=== PATIENT | female | born 1980 | race Caucasian/White ===

== ENCOUNTER 2019-12-09 18:52 | Emergency (ER) | payer OTHER ==
[~2019-12-09] VITALS: Ht 170.2 cm; Wt 77.1 kg
[~2019-12-09 18:52] MED LIST: BC IMPLANT; Bactrim Ds Tab1 EACH PO; CEPH500 PO; CIPR250 PO; CRUTCH4 XX; NAPR500 PO; Norco 5-325 Ta1 EACH PO; TRAM50 PO
== END 2019-12-09 22:00 | disposition home or self-care (01) ==
LOC: ER 18:52
DX: S61.411A Laceration without foreign body of right hand, initial encounter (principal); F17.200 Nicotine dependence, unspecified, uncomplicated; Z88.0 Allergy status to penicillin; Z23 Encounter for immunization; W25.XXXA Contact with sharp glass, initial encounter
CPT/HCPCS: 12002; 73130; 90471; 90714; 99283-25

== ENCOUNTER → 2020-02-26 | Outpatient (CLI) | payer OTHER ==
[2020-02-28 15:50] LABS: CORONAVIRUS (COVID19) CSH-NRL Negative (Negative)
== END ==
LOC: LAB SHORT 18:01
PROVIDERS: Chiropractor
DX: Z20.828 Contact with and (suspected) exposure to other viral communicable diseases (principal)
CPT/HCPCS: U0003

== ENCOUNTER 2020-05-01 10:01 | Day surgery (SDC) | payer OTHER ==
[2020-05-04 16:35] LABS: Performing Lab SYMBIODX; Test Name HER2 FISH
[2020-06-28] MEDS ORDERED: Chantix1 MG PO (15:55)
[2020-06-28] MEDS ORDERED: ACET500 PO (15:56)
[2020-06-28] MEDS ORDERED: CEPH500 PO (15:56)
== END 2020-05-01 23:45 | disposition home or self-care (01) ==
LOC: MOI US 10:01 → MOI MAM 10:15 → MOI US 23:45
PROVIDERS: Pathology Clinical Pathology/Laboratory Medicine
DX: C50.211 Malignant neoplasm of upper-inner quadrant of right female breast (principal); Z17.0 Estrogen receptor positive status [ER+]
CPT/HCPCS: 19083; 77065; 88305; 88342; 88360; 88374; A4648

== ENCOUNTER 2020-06-30 11:09 | Inpatient (IN) | payer OTHER ==
[~2020-06-30] VITALS: Ht 170.2 cm; Wt 69.8 kg
[~2020-06-30 11:09] MED LIST changes: +ACET500 PO; +Chantix1 MG PO
[2020-06-30 12:09] LABS: BASOPHILS ABSOLUTE AUTO 0.03 K/mm3 (0.00-0.23); BASOPHILS PERCENT AUTO 0 % (0-2); EOSINOPHILS ABSOLUTE AUTO 0.16 K/mm3 (0.00-0.68); EOSINOPHILS PERCENT AUTO 1 % (0-6); Hematocrit 37.3 % (33.0-51.0); Hemoglobin 12.5 g/dL (11.5-16.0); IMMATURE GRAN ABSOLUTE AUTO 0.04 K/mm3 (0.00-0.10); IMMATURE GRAN PERCENT AUTO 0 % (0-1); LYMPHOCYTES ABSOLUTE AUTO 1.51 K/mm3 (0.84-5.20); LYMPHOCYTES PERCENT AUTO 12 % (21-46); MONOCYTES ABSOLUTE AUTO 0.91 K/mm3 (0.16-1.47); MONOCYTES PERCENT AUTO 7 % (4-13); Mean Corpuscular HGB 32.5 pg (26.0-34.0); Mean Corpuscular HGB Conc 33.5 g/dL (31.5-36.5); Mean Corpuscular Volume 97 fL (80-100); Mean Platelet Volume 9.8 fL (9.1-12.4); NEUTROPHILS ABSOLUTE AUTO 10.12 K/mm3 (1.96-9.15); NEUTROPHILS PERCENT AUTO 79 % (41-73); Platelet Count 311 K/mm3 (150-400); RDW Coefficient Variation 12.7 % (11.7-14.2); Red Blood Cell Count 3.85 M/mm3 (3.80-5.20); White Blood Cell Count 12.77 K/mm3 (4.00-11.30)
[2020-06-30 12:32] LABS: Alanine Aminotransfer (ALT/SGP 17 U/L (12-78); Albumin, Blood 3.2 g/dL (3.4-5.0); Albumin/Globulin Ratio 0.7 (0.8-1.8); Alk Phos 70 U/L (50-136); Anion Gap 6 mmol/L (6-16); Aspartate Aminotrans (AST/SGOT 10 U/L (12-37); Bilirubin, Total 0.3 mg/dL (0.1-1.0); Blood Urea Nitrogen 11 mg/dL (8-24); CO2, Blood 28 mmol/L (21-32); Calcium, Blood 9.1 mg/dL (8.5-10.1); Chloride, Blood 101 mmol/L (98-108); Creatinine, Blood 0.69 mg/dL (0.40-1.00); Globulin, Blood 4.3 g/dL (2.2-4.0); Glomerular Filtration Rate >60 (60-); Glucose, Blood 82 mg/dL (70-99); Potassium, Blood 4.4 mmol/L (3.5-5.5); Sodium, Blood 135 mmol/L (136-145); Total Protein, Blood 7.5 g/dL (6.4-8.2)
[2020-07-01 05:28] LABS: BASOPHILS ABSOLUTE AUTO 0.04 K/mm3 (0.00-0.23); BASOPHILS PERCENT AUTO 1 % (0-2); EOSINOPHILS ABSOLUTE AUTO 0.33 K/mm3 (0.00-0.68); EOSINOPHILS PERCENT AUTO 4 % (0-6); Hematocrit 33.2 % (33.0-51.0); Hemoglobin 10.9 g/dL (11.5-16.0); IMMATURE GRAN ABSOLUTE AUTO 0.03 K/mm3 (0.00-0.10); IMMATURE GRAN PERCENT AUTO 0 % (0-1); LYMPHOCYTES ABSOLUTE AUTO 1.99 K/mm3 (0.84-5.20); LYMPHOCYTES PERCENT AUTO 24 % (21-46); MONOCYTES ABSOLUTE AUTO 0.65 K/mm3 (0.16-1.47); MONOCYTES PERCENT AUTO 8 % (4-13); Mean Corpuscular HGB 31.9 pg (26.0-34.0); Mean Corpuscular HGB Conc 32.8 g/dL (31.5-36.5); Mean Corpuscular Volume 97 fL (80-100); NEUTROPHILS ABSOLUTE AUTO 5.44 K/mm3 (1.96-9.15); NEUTROPHILS PERCENT AUTO 64 % (41-73); Platelet Count 282 K/mm3 (150-400); RDW Coefficient Variation 12.7 % (11.7-14.2); RDW Standard Deviation 45.1 fL (35.1-46.3); Red Blood Cell Count 3.42 M/mm3 (3.80-5.20); White Blood Cell Count 8.48 K/mm3 (4.00-11.30)
[2020-07-01 06:04] LABS: Anion Gap 7 mmol/L (6-16); Blood Urea Nitrogen 9 mg/dL (8-24); Bun/Creatinine Ratio 16.5 (12.0-20.0); CO2, Blood 26 mmol/L (21-32); Calcium, Blood 8.7 mg/dL (8.5-10.1); Chloride, Blood 105 mmol/L (98-108); Creatinine, Blood 0.55 mg/dL (0.40-1.00); Glomerular Filtration Rate >60 (60-); Glucose, Blood 89 mg/dL (70-99); Sodium, Blood 138 mmol/L (136-145)
--- NOTE | 2020-07-01 06:47 | NUR ---
SHIFT SUMMARY PT IS A 39 Y/O FEMALE, ADMITTED FOR SEPSIS R/T INFECTION POST-BILAT MASTECTOMY. R BREAST HAS AREA OF REDNESS, WARMTH AND PAIN. PT WAS MEDICATED TWICE FOR PAIN WITH PRN OXYCODONE. NO C/O NAUSEA OR SOB. VITAL SIGNS STABLE. PT RECEIVING NS @ 75 ML/HR. NO ACUTE CHANGES IN PT CONDITION NOTED DURING THE NIGHT. WILL CONTINUE TO MONITOR AND TREAT PER UNTIL HAND OFF TO DAY SHIFT RN.
[2020-07-01 15:47] LABS: Vancomycin, Trough 10.5 ug/mL (5.0-10.0)
--- NOTE | 2020-07-01 16:49 | NUR ---
SHIFT SUMMARY PT AOX4; CALLS APPROPRIATELY AND INDEPENDENT IN THE ROOM. PT RECEIVING VANCOMYCIN. PT HAD A PREVIOUS BILAT MASTECTOMY 3 WEEKS AGO, AND R BREAST GOT INFECTED. PT R BREAST SWOLLEN/RED. PT MEDICATED FOR PAIN TODAY. PT STATED TORADOL IS WORKING FOR HER. PT ALSO C/O OF INSOMNIA; RECEIVED AN ORDER FOR MARA MEDRANO. PT BED IS IN THE LOWEST POSITION AND CALL LIGHT WITHIN REACH
--- NOTE | 2020-07-01 18:57 | NUR ---
Spiritual care note: Advanced directive completed with Xiao. If there is no hope of meaningful recovery, she wishes to be DNR. She does want "everything done" until there "is no hope." She feels well loved and supported by friends and family. She does not trust her mom to make "Right decisions" and has assigned her cousin and sister as MPOA. Advanced Directive notarized and copy hand-carried to Medical Records. Several copies given to pt. Xiao has a sense of humor and is hopeful for complete remission of cancer. I supported and affirmed beliefs and offered prayer. [facility] services will remain available.
--- NOTE | 2020-07-02 07:10 | NUR ---
SHIFT SUMMARY PT IS A 39 Y/O FEMALE, ADMITTED FOR SEPSIS R/T R BREAST INFECTION POST BILATERAL MASTECTOMY. SHE IS A&O X 4, INDEPENDENT IN THE ROOM. PT MEDICATED ONCE FOR BREAST PAIN WITH PRN IV TORADOL, WHICH PT REPORTS CONTROLS THE PAIN WELL. NO C/O NAUSEA OR SOB. VITAL SIGNS STABLE. PT RECEIVING NS @ 75 ML/HR. NO ACUTE CHANGES IN PT CONDITION NOTED. REPORT GICEN TO ONCOMING RN.
[2020-07-02] MEDS ORDERED: VISBIOME 112.51 EACH PO (12:02)
[2020-07-02] MEDS ORDERED: FAMO20 PO (12:03)
[2020-07-02] MEDS ORDERED: LEVO750 PO (12:03)
[2020-07-02] MEDS ORDERED: IBUP400 PO (12:03)
--- NOTE | 2020-07-02 14:11 | NUR ---
DISCHARGE DISCHARGE INSTRUCTIONS, MEDICATION LIST AN FOLLOW UP APPOINTMENTS REVIEWED WITH PT. QUESTIONS/CONCERNS ANSWERED. PT VERBALLY INDICATED UNDERSTANDING OF ALL INSTRUCTIONS RECEIVED. ESCORTED OUT VIA W/C BY CARMEN
== END 2020-07-02 13:49 | disposition home or self-care (01) | DRG 862 ==
LOC: ER 11:09 → ERHOLD 16:15 → MEDS 16:15
PROVIDERS: Emergency Medicine; Nurse Practitioner Acute Care; Pharmacist; ADMIT Internal Medicine
PROC: 0J963ZZ Drainage of Chest Subcutaneous Tissue and Fascia, Percutaneous Approach (ICD-10-PCS; principal; 2020-06-30)
DX: T81.41XA Infection following a procedure, superficial incisional surgical site, initial encounter (principal); A41.9 Sepsis, unspecified organism; R65.20 Severe sepsis without septic shock; M96.843 Postprocedural seroma of a musculoskeletal structure following other procedure; C50.912 Malignant neoplasm of unspecified site of left female breast; C50.911 Malignant neoplasm of unspecified site of right female breast; T81.44XA Sepsis following a procedure, initial encounter; N61.1 Abscess of the breast and nipple; Y83.8 Other surgical procedures as the cause of abnormal reaction of the patient, or of later complication, without mention of misadventure at the time of the procedure; Z88.0 Allergy status to penicillin; Z79.899 Other long term (current) drug therapy
CPT/HCPCS: 10061; 10160; 36415; 76604; 80048; 80053; 80202; 83605; 85025; 87040; 87070; 87075; 87077; 87147; 87186; 87205; 89051; 96365-59; 96375-59; 99284-25; A9270; J0690; J1170; J1644; J1650; J1885; J2270; J2405; J3370; J7030; J7050

== ENCOUNTER 2020-08-12 15:35 | Day surgery (SDC) | payer OTHER ==
[~2020-08-12 15:35] MED LIST changes: +FAMO20 PO; +IBUP400 PO; +LEVO750 PO; +VISBIOME 112.51 EACH PO
== END 2020-08-12 22:50 | disposition home or self-care (01) ==
LOC: RAD 15:35
DX: C50.211 Malignant neoplasm of upper-inner quadrant of right female breast (principal)
CPT/HCPCS: 36598

== ENCOUNTER 2020-11-23 12:51 | Day surgery (SDC) | payer OTHER | END 2020-11-23 23:11 | disposition home or self-care (01) | LOC: RAD 12:51 | DX: C50.919 Malignant neoplasm of unspecified site of unspecified female breast (principal) | CPT/HCPCS: 36598; Q9967 ==

== ENCOUNTER 2021-07-27 12:56 | Day surgery (SDC) | payer OTHER ==
[~2021-07-27] VITALS: Ht 170.2 cm; Wt 68.5 kg
[2021-07-27] MEDS ORDERED: BUSP10 (13:45)
[2021-07-27] MEDS ORDERED: BUPR150ER (13:46)
[2021-07-27] MEDS ORDERED: TRAZ50 (13:46)
--- NOTE | 2021-07-27 14:34 | NUR ---
07/27/21 1434 David Milan 0.15MG EPI ADDED TO 30 ML'S 0.5% BUPIVACAINE TO ACHIEVE SOLUTION OF 1:200,000. DOSE VERIFIED BY [email or web address] AND [email or web address]
== END 2021-07-27 17:35 | disposition home or self-care (01) ==
LOC: ORSCSDS 12:56
PROVIDERS: Obstetrics & Gynecology
PROC: 0UT74ZZ Resection of Bilateral Fallopian Tubes, Percutaneous Endoscopic Approach (ICD-10-PCS; principal; 2021-07-27 14:00)
PROC: 0UT24ZZ Resection of Bilateral Ovaries, Percutaneous Endoscopic Approach (ICD-10-PCS; principal; 2021-07-27 14:00)
DX: Z40.02 Encounter for prophylactic removal of ovary(s) (principal); C50.919 Malignant neoplasm of unspecified site of unspecified female breast; Z17.0 Estrogen receptor positive status [ER+]; N83.292 Other ovarian cyst, left side; N83.291 Other ovarian cyst, right side; K66.0 Peritoneal adhesions (postprocedural) (postinfection); F17.210 Nicotine dependence, cigarettes, uncomplicated
CPT/HCPCS: 88305; A9270; J0171; J1100; J1885; J2250; J2405; J2704; J3010; J7120

== ENCOUNTER 2021-09-19 21:22 | Emergency (ER) | payer OTHER ==
[~2021-09-19] VITALS: Ht 170.2 cm; Wt 72.6 kg
[~2021-09-19 21:22] MED LIST changes: +BUPR150ER; +BUSP10; +TRAZ50
[2021-09-19 21:57] LABS: BASOPHILS ABSOLUTE AUTO 0.06 K/mm3 (0.00-0.23); BASOPHILS PERCENT AUTO 1 % (0-2); EOSINOPHILS ABSOLUTE AUTO 0.18 K/mm3 (0.00-0.68); EOSINOPHILS PERCENT AUTO 3 % (0-6); Hematocrit 35.1 % (33.0-51.0); Hemoglobin 11.7 g/dL (11.5-16.0); Mean Corpuscular HGB 32.7 pg (26.0-34.0); Mean Corpuscular HGB Conc 33.3 g/dL (31.5-36.5); Mean Corpuscular Volume 98 fL (80-100); Mean Platelet Volume 9.6 fL (9.1-12.4); Platelet Count 235 K/mm3 (150-400); RDW Coefficient Variation 12.3 % (11.7-14.2); RDW Standard Deviation 44.8 fL (35.1-46.3); Red Blood Cell Count 3.58 M/mm3 (3.80-5.20); White Blood Cell Count 6.92 K/mm3 (4.00-11.30)
[2021-09-19 22:01] LABS: IMMATURE GRAN ABSOLUTE AUTO 0.01 K/mm3 (0.00-0.10); IMMATURE GRAN PERCENT AUTO 0 % (0-1); LYMPHOCYTES PERCENT AUTO 23 % (21-46); MONOCYTES ABSOLUTE AUTO 0.65 K/mm3 (0.16-1.47); MONOCYTES PERCENT AUTO 9 % (4-13); NEUTROPHILS ABSOLUTE AUTO 4.42 K/mm3 (1.96-9.15); NEUTROPHILS PERCENT AUTO 64 % (41-73)
[2021-09-19 22:16] LABS: Albumin, Blood 3.4 g/dL (3.4-5.0); Albumin/Globulin Ratio 1.1 (0.8-1.8); Bilirubin, Total 0.2 mg/dL (0.1-1.0); Calcium, Blood 8.7 mg/dL (8.5-10.1); Creatinine, Blood 0.59 mg/dL (0.40-1.00); Globulin, Blood 3.2 g/dL (2.2-4.0); Total Protein, Blood 6.6 g/dL (6.4-8.2)
[2021-09-20] MEDS ORDERED: CYCL10 PO (00:05)
== END 2021-09-20 00:31 | disposition home or self-care (01) ==
LOC: ER 21:22
PROVIDERS: Student in an Organized Health Care Education/Training Program
DX: R07.89 Other chest pain (principal); Z87.891 Personal history of nicotine dependence
CPT/HCPCS: 36415; 71046; 80053; 85025; A9270

== ENCOUNTER 2024-06-13 13:50 | Observation (INO) | payer OTHER ==
[~2024-06-13] VITALS: Ht 170.2 cm; Wt 73.8 kg
[~2024-06-13 13:50] MED LIST changes: +CYCL10 PO
[2024-06-13 19:43] LABS: BASOPHILS ABSOLUTE AUTO 0.06 K/mm3 (0.00-0.23); BASOPHILS PERCENT AUTO 1 % (0-2); EOSINOPHILS ABSOLUTE AUTO 0.21 K/mm3 (0.00-0.68); EOSINOPHILS PERCENT AUTO 3 % (0-6); Hematocrit 40.3 % (33.0-51.0); Hemoglobin 13.4 g/dL (11.5-16.0); IMMATURE GRAN ABSOLUTE AUTO 0.02 K/mm3 (0.00-0.10); IMMATURE GRAN PERCENT AUTO 0 % (0-1); LYMPHOCYTES ABSOLUTE AUTO 1.92 K/mm3 (0.84-5.20); LYMPHOCYTES PERCENT AUTO 31 % (21-46); MONOCYTES ABSOLUTE AUTO 0.48 K/mm3 (0.16-1.47); MONOCYTES PERCENT AUTO 8 % (4-13); Mean Corpuscular HGB 31.5 pg (26.0-34.0); Mean Corpuscular HGB Conc 33.3 g/dL (31.5-36.5); Mean Corpuscular Volume 95 fL (80-100); Mean Platelet Volume 9.6 fL (9.1-12.4); NEUTROPHILS ABSOLUTE AUTO 3.59 K/mm3 (1.96-9.15); NEUTROPHILS PERCENT AUTO 57 % (41-73); Platelet Count 232 K/mm3 (150-400); RDW Coefficient Variation 12.8 % (11.7-14.2); RDW Standard Deviation 44.9 fL (35.1-46.3); Red Blood Cell Count 4.26 M/mm3 (3.80-5.20); White Blood Cell Count 6.28 K/mm3 (4.00-11.30)
[2024-06-13 19:58] LABS: International Normalized Ratio 0.88; Prothrombin Time Results 9.5 Sec (9.7-11.5)
[2024-06-13 20:17] LABS: Albumin, Blood 3.8 g/dL (3.4-5.0); Bilirubin, Total 0.4 mg/dL (0.1-1.0); Calcium, Blood 9.1 mg/dL (8.5-10.1); Creatinine, Blood 0.75 mg/dL (0.40-1.00); Globulin, Blood 3.7 g/dL (2.2-4.0); Potassium, Blood 3.7 mmol/L (3.5-5.5); Total Protein, Blood 7.5 g/dL (6.4-8.2)
[2024-06-13] MEDS ORDERED: Heparin Sodium,Porcine/0.5 NS 500 ML IV SCH (20:45)
[2024-06-13] MEDS ORDERED: Acetaminophen 325 MG TABLET PO PRN (20:50)
[2024-06-13] MEDS ORDERED: Ondansetron HCl 2 MG / ML 2ML Vial IV PRN (20:50)
[2024-06-13] MEDS ORDERED: TraMADol HCl 50 MG Tab PO PRN (20:50)
[2024-06-13] MEDS ORDERED: FLU VACC TS2024-25(6MOS UP)/PF 45 MCG/0.5 ML SYRINGE IM SCH (20:50)
[2024-06-13 20:57] LABS: Anti-Xa UFH, PHA Monitoring <0.10 IU/mL
[2024-06-13] MEDS ORDERED: Docusate Sodium 100 MG Cap PO SCH (21:00)
[2024-06-13] MEDS ORDERED: Heparin Sodium 5000 Units/ML 1ML MDV IV ONE (21:50)
[2024-06-13 22:22] VITALS: BP 141/87
[2024-06-13 23:41] LABS: U Amphetamine Screen DETECTED; U Barbituate Screen Not Detected; U Benzodiazapine Screen Not Detected; U Buprenorphine Screen Not Detected; U Cannabinoids Screen DETECTED; U Cocaine Screen Not Detected; U Methadone Screen Not Detected; U Methamphetamine Screen DETECTED; U Opiates Screen Not Detected; U Oxycodone Screen Not Detected; U Phencyclidine Screen Not Detected
[2024-06-14] MEDS ORDERED: Melatonin 3 MG Tab PO PRN (01:55)
[2024-06-14] MEDS ORDERED: Nicotine 21 MG PATCH TOP SCH ×2 (02:05→09:00)
[2024-06-14 03:12] LABS: BASOPHILS ABSOLUTE AUTO 0.07 K/mm3 (0.00-0.23); BASOPHILS PERCENT AUTO 1 % (0-2); EOSINOPHILS PERCENT AUTO 4 % (0-6); Hematocrit 38.4 % (33.0-51.0); Hemoglobin 12.8 g/dL (11.5-16.0); IMMATURE GRAN ABSOLUTE AUTO 0.02 K/mm3 (0.00-0.10); IMMATURE GRAN PERCENT AUTO 0 % (0-1); LYMPHOCYTES ABSOLUTE AUTO 2.63 K/mm3 (0.84-5.20); LYMPHOCYTES PERCENT AUTO 38 % (21-46); MONOCYTES ABSOLUTE AUTO 0.47 K/mm3 (0.16-1.47); MONOCYTES PERCENT AUTO 7 % (4-13); Mean Corpuscular HGB 31.6 pg (26.0-34.0); Mean Corpuscular HGB Conc 33.3 g/dL (31.5-36.5); Mean Corpuscular Volume 95 fL (80-100); NEUTROPHILS ABSOLUTE AUTO 3.41 K/mm3 (1.96-9.15); NEUTROPHILS PERCENT AUTO 50 % (41-73); Platelet Count 216 K/mm3 (150-400); RDW Standard Deviation 44.7 fL (35.1-46.3); Red Blood Cell Count 4.05 M/mm3 (3.80-5.20)
[2024-06-14 03:53] VITALS: BP 133/79
[2024-06-14] MEDS ORDERED: Dose Adjust by Pharmacy XX STA (04:03)
[2024-06-14 04:40] LABS: Albumin, Blood 3.5 g/dL (3.4-5.0); Albumin/Globulin Ratio 1.1 (0.8-1.8); Bilirubin, Total 0.4 mg/dL (0.1-1.0); Bun/Creatinine Ratio 22.8 (12.0-20.0); Calcium, Blood 8.4 mg/dL (8.5-10.1); Creatinine, Blood 0.75 mg/dL (0.40-1.00); Globulin, Blood 3.1 g/dL (2.2-4.0); Potassium, Blood 3.5 mmol/L (3.5-5.5); Total Protein, Blood 6.6 g/dL (6.4-8.2)
--- NOTE | 2024-06-14 05:21 | NUR ---
NEW ADMISSION, IV PATENT AND RUNNING HEPARIN ORDERED. PT HAS BEEN NPO SINCE [id number]. PT DENIES PAIN, OR NEEDS NO S/S OF DISTRESS NOTED THIS SHIFT. PTS SON AT [facility].
[2024-06-14 07:32] VITALS: BP 137/90
[2024-06-14 14:25] VITALS: BP 127/75
[2024-06-14] MEDS ORDERED: NS 1,000 ML IV ONE ×3 (15:55→16:50)
[2024-06-14] MEDS ORDERED: Heparin Sodium 1000 Units/ML 10ML MDV ONE ×2 (15:55→16:50)
[2024-06-14] MEDS ORDERED: Midazolam HCl 1MG / ML 2ML Vial ONE ×2 (16:24→17:08)
[2024-06-14] MEDS ORDERED: FentaNYL Citrate 50 MCG/ML 2 ML Injection ONE (16:24)
--- NOTE | 2024-06-14 16:30 | NUR ---
PATIENT TAKEN TO BOILERMAKER HELPER VIA WHEELCHAIR. PATIENT AGITATED PRIOR TO PROCEDURE BECAUSE FAMILY CALLED TO REPORT CATS PEEING IN HER ROOM. PATIENT ATTEMPTED TO GO AMA BUT WAS EDUCATED RELATED TO RISKS. PATIENT COOPERATIVE AND AGREED TO PROCEDURE.
[2024-06-14] MEDS ORDERED: LORazepam 2 MG/ML 1ML Injection IV PRN (16:45)
[2024-06-14 17:47] VITALS: BP 128/95
--- NOTE | 2024-06-14 19:00 | NUR ---
SHIFT SUMMARY PATIENT ALERT AND INTERACTIVE. RESTLESS IN THE ROOM. PATIENT INDEPENDENT IN THE ROOM. VISITORS NOTED TO HAVE CIGARETTES IN THE ROOM. EDUCATED RELATED TO FIRE SAFETY AND HOSPITAL POLICY. LATER, PRIOR TO PROCEDURE, PATIENT FOUND TO HAVE VAPING DEVICE. VAPING DEVICE REMOVED AND SECURED. MOTHER AND PATIENT RE EDUCATED RELATED TO FIRE SAFETY AND HOSPITAL POLICY. FAMILY BROUGHT IN FOOD AND BELONGINGS. FAMILY INFORMED OF FIRE SAFETY AND HOSPITAL POLICY. FAMILY REMOVED A BOTTLE FULL OF A LIQUID AND A COAT CONTAINING COVERED ITEMS AND LEFT WITH THOSE ITEMS. ALL OTHER BELONGINS CHECKED AND GIVEN TO PATIENT. PATIENT UPSET THAT WE ARE NOT ABLE TO REHEAT OUTSIDE FOOD. FOOD ITEMS PLACED ON ICE IN PATIENTS ROOM. PRESSURE DRESSING OVER R AC VENOUS ACCESS REMOVED DURING BEDSIDE REPORT NO BLEEDING ON OCCLUSIVE DRESSING.
[2024-06-14 19:54] VITALS: BP 149/100
[2024-06-14] MEDS ORDERED: Melatonin 3 MG Tab PO SCH (21:00)
[2024-06-15 01:12] VITALS: BP 143/101
[2024-06-15 01:25] LABS: BASOPHILS ABSOLUTE AUTO 0.04 K/mm3 (0.00-0.23); BASOPHILS PERCENT AUTO 1 % (0-2); EOSINOPHILS ABSOLUTE AUTO 0.24 K/mm3 (0.00-0.68); EOSINOPHILS PERCENT AUTO 4 % (0-6); Hematocrit 38.8 % (33.0-51.0); IMMATURE GRAN ABSOLUTE AUTO 0.01 K/mm3 (0.00-0.10); IMMATURE GRAN PERCENT AUTO 0 % (0-1); LYMPHOCYTES ABSOLUTE AUTO 1.74 K/mm3 (0.84-5.20); LYMPHOCYTES PERCENT AUTO 29 % (21-46); MONOCYTES ABSOLUTE AUTO 0.37 K/mm3 (0.16-1.47); MONOCYTES PERCENT AUTO 6 % (4-13); Mean Corpuscular HGB 31.9 pg (26.0-34.0); Mean Corpuscular HGB Conc 33.5 g/dL (31.5-36.5); Mean Corpuscular Volume 95 fL (80-100); Mean Platelet Volume 9.5 fL (9.1-12.4); NEUTROPHILS ABSOLUTE AUTO 3.52 K/mm3 (1.96-9.15); NEUTROPHILS PERCENT AUTO 59 % (41-73); Platelet Count 230 K/mm3 (150-400); RDW Coefficient Variation 12.9 % (11.7-14.2); RDW Standard Deviation 46.1 fL (35.1-46.3); Red Blood Cell Count 4.07 M/mm3 (3.80-5.20); White Blood Cell Count 5.92 K/mm3 (4.00-11.30)
[2024-06-15 01:42] LABS: Bun/Creatinine Ratio 23.1 (12.0-20.0); Calcium, Blood 8.4 mg/dL (8.5-10.1); Creatinine, Blood 0.65 mg/dL (0.40-1.00); Potassium, Blood 3.7 mmol/L (3.5-5.5)
[2024-06-15] MEDS ORDERED: Clarify Drug Order XX ONE (02:40)
[2024-06-15 03:23] VITALS: BP 151/102
--- NOTE | 2024-06-15 04:55 | NUR ---
PT HAS SLEPT T/O MOST OF THE SHIFT. INDEPENDENT IN RM DENIES PAIN OR NEEDS.
[2024-06-15 07:42] VITALS: BP 132/86
[2024-06-15] MEDS ORDERED: Rivaroxaban 10 MG Tab PO SCH (08:00)
[2024-06-15] MEDS ORDERED: XARELTO20 MG PO ×2 (11:18)
[2024-06-15 11:32] VITALS: BP 151/99
--- NOTE | 2024-06-15 13:30 | NUR ---
SHIFT SUMMARY AND DISCHARGE PATIENT ALERT AND INTERACTIVE. PATIENT EASILY IRRITABLE AND LOUD. PATIENT INDEPENDENT IN ROOM. R AC ACCESS SITE DRY AND INTACT. DRESSING CHANGED. DISCHARGE INSTRUCTIONS REVIEWED WITH PATIENT. PATIENT STATED THAT IF THE PRESCRIPTIONS WERE GOING TO COST HER MONEY, SHE WAS NOT GOING TO PICK THEM UP. RE EDUCATED PATIENT ON THE IMPORTANCE OF TAKING BLOOD THINNERS ORDERED. PATIENT VERBALIZED UNDERSTANDING. EDUCATION RELATED TO SITE CARE PROVIDED TO PATIENT. IV DC'D. TELE MONITOR REMOVED. ALL BELONGINGS RETURNED TO PATIENT. PATIENT AMBULATED OUT WITH FAMILY MEMBER.
--- NOTE | 2024-06-16 14:41 | NUR ---
CALL FROM PATIENT'S HEALTHCARE PROXY, JJ HARRY: SHE TYPICALLY HELPS PATIENT WITH ALL OF HER HEALTHCARE NEEDS, BUT WAS UNABLE TO BE HERE WHEN PATIENT DISCHARGED YESTERDAY (INFO LISTED IN PATIENT'S CHART). LET JJ KNOW THAT PATIENT HAD A DARK BLUE PACKET WHEN SHE WAS DISCHARGED AND ALL INFORMATION SHOULD BE IN THERE. SHE ESSENTIALLY WANTED TO KNOW IF ANY MEDICATIONS WERE SENT TO THE PHARMACY, IF THEY NEEDED TO BE PICKED UP RIGHT AWAY AND WITH WHOM SHE NEEDED TO SCHEDULE FOLLOW-UP APPOINTMENTS FOR PATIENT.
== END 2024-06-15 13:32 | disposition home or self-care (01) ==
LOC: ER 13:50 → MEDS 13:51 → UNDODEPER 06-15 04:52 → MEDS 06-15 13:32
PROVIDERS: Student in an Organized Health Care Education/Training Program; ADMIT Student in an Organized Health Care Education/Training Program
DX: I82.B11 Acute embolism and thrombosis of right subclavian vein (principal); I82.A11 Acute embolism and thrombosis of right axillary vein; I82.621 Acute embolism and thrombosis of deep veins of right upper extremity; I82.611 Acute embolism and thrombosis of superficial veins of right upper extremity; F17.210 Nicotine dependence, cigarettes, uncomplicated; Z88.0 Allergy status to penicillin; Z79.899 Other long term (current) drug therapy
CPT/HCPCS: 36415; 37187; 37248; 75827; 76937; 80048; 80053; 83735; 85025; 85520; 85610; 85730; 93306; 93971; 94762; 96374; 96376; 99152; 99153; 99285-25; A9270; C1725; C1769; C1887; C1894; G0378; J1644; J2250; J3010; J7030; Q9967

== ENCOUNTER 2024-06-23 19:12 | Emergency (ER) | payer OTHER ==
[~2024-06-23] VITALS: Ht 170.2 cm; Wt 74.4 kg
[~2024-06-23 19:12] MED LIST changes: +XARELTO20 MG PO
[2024-06-23 19:51] LABS: BASOPHILS ABSOLUTE AUTO 0.05 K/mm3 (0.00-0.23); BASOPHILS PERCENT AUTO 1 % (0-2); EOSINOPHILS ABSOLUTE AUTO 0.13 K/mm3 (0.00-0.68); EOSINOPHILS PERCENT AUTO 2 % (0-6); Hematocrit 38.4 % (33.0-51.0); Hemoglobin 12.8 g/dL (11.5-16.0); IMMATURE GRAN ABSOLUTE AUTO 0.01 K/mm3 (0.00-0.10); IMMATURE GRAN PERCENT AUTO 0 % (0-1); LYMPHOCYTES ABSOLUTE AUTO 1.53 K/mm3 (0.84-5.20); LYMPHOCYTES PERCENT AUTO 22 % (21-46); MONOCYTES ABSOLUTE AUTO 0.31 K/mm3 (0.16-1.47); MONOCYTES PERCENT AUTO 4 % (4-13); Mean Corpuscular HGB 31.5 pg (26.0-34.0); Mean Corpuscular HGB Conc 33.3 g/dL (31.5-36.5); Mean Corpuscular Volume 95 fL (80-100); Mean Platelet Volume 9.6 fL (9.1-12.4); NEUTROPHILS ABSOLUTE AUTO 4.98 K/mm3 (1.96-9.15); NEUTROPHILS PERCENT AUTO 71 % (41-73); Platelet Count 262 K/mm3 (150-400); RDW Coefficient Variation 12.9 % (11.7-14.2); RDW Standard Deviation 44.9 fL (35.1-46.3); Red Blood Cell Count 4.06 M/mm3 (3.80-5.20); White Blood Cell Count 7.01 K/mm3 (4.00-11.30)
[2024-06-23 20:11] LABS: Albumin/Globulin Ratio 1.1 (0.8-1.8); Bilirubin, Total 0.3 mg/dL (0.1-1.0); Bun/Creatinine Ratio 17.1 (12.0-20.0); Creatinine, Blood 0.76 mg/dL (0.40-1.00); Globulin, Blood 3.5 g/dL (2.2-4.0); Total Protein, Blood 7.5 g/dL (6.4-8.2)
[2024-06-23] MEDS ORDERED: Morphine Sulfate 4 MG/1 ML Injection IV ONE (21:05)
[2024-06-23 21:30] VITALS: BP 129/80
== END 2024-06-23 22:02 | disposition home or self-care (01) ==
LOC: ER 19:12
PROVIDERS: Student in an Organized Health Care Education/Training Program
DX: I82.621 Acute embolism and thrombosis of deep veins of right upper extremity (principal); I82.611 Acute embolism and thrombosis of superficial veins of right upper extremity; R07.9 Chest pain, unspecified; Z86.718 Personal history of other venous thrombosis and embolism; Z87.891 Personal history of nicotine dependence; Z88.0 Allergy status to penicillin; Z79.01 Long term (current) use of anticoagulants
CPT/HCPCS: 71260; 80053; 85025; 93005; 93010; 93971; J2270; Q9967

== ENCOUNTER 2024-07-05 15:40 | Emergency (ER) | payer OTHER ==
[~2024-07-05] VITALS: Ht 170.2 cm; Wt 79.7 kg
[2024-07-05 16:53] LABS: BASOPHILS ABSOLUTE AUTO 0.06 K/mm3 (0.00-0.23); BASOPHILS PERCENT AUTO 1 % (0-2); EOSINOPHILS ABSOLUTE AUTO 0.17 K/mm3 (0.00-0.68); EOSINOPHILS PERCENT AUTO 3 % (0-6); Hematocrit 35.3 % (33.0-51.0); Hemoglobin 11.6 g/dL (11.5-16.0); IMMATURE GRAN ABSOLUTE AUTO 0.02 K/mm3 (0.00-0.10); IMMATURE GRAN PERCENT AUTO 0 % (0-1); LYMPHOCYTES ABSOLUTE AUTO 1.58 K/mm3 (0.84-5.20); LYMPHOCYTES PERCENT AUTO 25 % (21-46); MONOCYTES ABSOLUTE AUTO 0.48 K/mm3 (0.16-1.47); MONOCYTES PERCENT AUTO 8 % (4-13); Mean Corpuscular HGB 32.1 pg (26.0-34.0); Mean Corpuscular HGB Conc 32.9 g/dL (31.5-36.5); Mean Corpuscular Volume 98 fL (80-100); NEUTROPHILS ABSOLUTE AUTO 3.91 K/mm3 (1.96-9.15); NEUTROPHILS PERCENT AUTO 63 % (41-73); Platelet Count 236 K/mm3 (150-400); RDW Coefficient Variation 13.3 % (11.7-14.2); RDW Standard Deviation 48.3 fL (35.1-46.3); Red Blood Cell Count 3.61 M/mm3 (3.80-5.20); White Blood Cell Count 6.22 K/mm3 (4.00-11.30)
[2024-07-05 17:05] LABS: Albumin, Blood 3.7 g/dL (3.4-5.0); Albumin/Globulin Ratio 1.1 (0.8-1.8); Bilirubin, Total 0.2 mg/dL (0.1-1.0); Bun/Creatinine Ratio 26.7 (12.0-20.0); Calcium, Blood 8.9 mg/dL (8.5-10.1); Creatinine, Blood 0.75 mg/dL (0.40-1.00); Globulin, Blood 3.3 g/dL (2.2-4.0); Potassium, Blood 4.4 mmol/L (3.5-5.5)
[2024-07-05 20:27] LABS: Source, Urine Clean Catch
[2024-07-05] MEDS ORDERED: Nicotine 14 MG PATCH TOP ONE (20:45)
[2024-07-05 20:53] LABS: Appearance, Urine Clear (Clear); Bilirubin, Urine Neg (Neg); Blood, Urine 1+ (Neg); Color, Urine Yellow (P-Yellow); Glucose Qualitative, Urine Neg (Neg); Ketones, Urine Neg (Neg); Leukocyte Esterase, Urine 1+ (Neg); Nitrite, Urine Neg (Neg); Protein, Urine Neg (Neg); Specific Gravity, Urine 1.025 (1.003-1.022); Urobilinogen, Urine NORM (Normal)
[2024-07-05 21:02] LABS: Bacteria Many /hpf; Squamous Epithelial Cells Few /hpf (Few)
[2024-07-05] MEDS ORDERED: HYDROmorphone HCl/Pf 1MG SYR IV ONE (21:05)
[2024-07-05] MEDS ORDERED: Ciprofloxacin 400MG/D5 200ML 200 ML IV ONE (21:15)
[2024-07-05 21:32] LABS: International Normalized Ratio 1.05; Prothrombin Time Results 11.2 Sec (9.7-11.5)
[2024-07-05 22:18] VITALS: BP 120/75
[2024-07-05] MEDS ORDERED: CIPR500 PO (23:26)
== END 2024-07-05 23:43 | disposition home or self-care (01) ==
LOC: ER 15:40
PROVIDERS: Student in an Organized Health Care Education/Training Program
DX: I82.721 Chronic embolism and thrombosis of deep veins of right upper extremity (principal); N39.0 Urinary tract infection, site not specified; Z85.3 Personal history of malignant neoplasm of breast; Z88.0 Allergy status to penicillin; Z79.01 Long term (current) use of anticoagulants; Z87.891 Personal history of nicotine dependence
CPT/HCPCS: 71046; 71260; 80053; 81001; 84484; 85025; 85610; 85730; 87077; 87086; 87186; 93005; 93010; 93971; 96365; 96375; 99284-25; A9270; J0744; J1171; Q9967